=== PATIENT | female | born 1935 | race Caucasian/White ===

== ENCOUNTER → 2020-10-24 10:56 | Outpatient (CLI) | payer MEDICARE, OTHER, SELFPAY ==
[2020-10-24 12:27] LABS: COVID19 -Nasal RAPID Negative (Negative)
== END ==
PROVIDERS: Family Provider Specialist; PCP Specialist; Visit Provider Physician Assistant
DX: Z01.812 Encounter for preprocedural laboratory examination (principal); Z20.822 Contact with and (suspected) exposure to COVID-19
CPT/HCPCS: 87635; C9803

== ENCOUNTER 2020-10-27 10:59 | Day surgery (SDC) | payer MEDICARE, OTHER, SELFPAY ==
[2020-10-27] MEDS: CATARACT EYE COMPOUND (10 DROPS/SYRINGE) 3 DROPS EYE-OP (11:33)
[2020-10-27] MEDS: PROPARACAINE 0.5% OPHTH SOL 2 DROPS EYE-OP (11:33)
[2020-10-27 11:34] VITALS: BP 164/91; PULSE 84; RESP 16; TEMP 36.3; O2SAT 96; BMI 30.9
--- NOTE | 2020-10-27 12:24 | P.OP_ITS ---
Operative Date/Time/Diagnoses Pre-op diagnosis: Nuclear Cataract Left eye Post-op diagnosis: same Procedure & Clinicians Same procedure as scheduled: Yes Surgeon: Remi Roque Anesthesia Type: MAC +/- and Sedation Operative Notes Procedure in detail: Patient brought to the operating suite. Tetracaine drops placed in the left eye. Patient was prepped and draped in sterile manner. Wire lid speculum was placed in the eye. Betadine drops were placed on the eye. This was irrigated. Lidocaine jelly was placed on the eye. A paracentesis port was created with a side-port blade. 0.1 mL 1% preservative free lidocaine was injected into the anterior chamber. The anterior chamber was deepened with viscoelastic. 2.6 mm keratome was used to create a temporal clear corneal incision. Cystotome and Utrata forceps were used to create continuous tear capsulorrhexis. Balanced salt solution was used to hydro dissect the nucleus. The phacoemulsification handpiece was inserted and the nucleus was removed using the stop and chop technique. The irrigation aspiration handpiece was inserted and the remaining cortex was removed. Anterior chamber was deepened with viscoe lastic. An Weiner DIB00 intraocular lens with a power of 23.0 was injected into the capsular bag. Irrigation aspiration handpiece was inserted and the remaining viscoelastic was removed. Incision was hydrated with balanced salt solution and found to be leak free with pressure with Weck-Gisell sponges. 0.1 mL Vigamox injected anterior chamber. 0.3 mL Kenalog 10 mg was injected subconjunctivally. Lid speculum was removed. The patient left the operating room in excellent condition. Complications: none Post-operative Condition: stable Disposition: same day surgery
--- NOTE | 2020-10-27 12:24 | PM.PREOP ---
Pre-operative Note Interval Note History & Physical reviewed/Exam performed by Physician: Yes Changes to H&P: No
[2020-10-27] MEDS: CHONDROIDTIN/SOD HYALURONATE 1.05 ML SYRINGE INTRAOCULA (12:46)
[2020-10-27] MEDS: TRIAMCINOLONE 50 MG/5 ML VIAL INJ (12:46)
[2020-10-27] MEDS: MOXIFLOXACIN INJ 4 MG/0.8 ML VIAL 0.5 MG EYE-OP (12:46)
[2020-10-27] MEDS: PHENYLEPHRINE/LIDOCAINE VIAL (OR) 0.2 ML EYE-OP (12:46)
[2020-10-27] MEDS: TETRACAINE 0.5% OPHTH DROPS 4 ML 2 DROPS EYE-OP (12:47)
[2020-10-27] MEDS: BALANCED SALT IRRIG SOLN NO.2 500 ML, EPINEPHrine 1 MG IRR (12:47)
[2020-10-27] MEDS: LIDOCAINE 2% (GLYDO) 6 ML GEL TOP (12:47)
[2020-10-27 13:10] VITALS: BP 122/75; PULSE 85; RESP 16; TEMP 36.2; O2SAT 92
[2020-10-27 13:19] VITALS: BP 143/80; PULSE 69; RESP 14; TEMP 36.3; O2SAT 98
== END 2020-10-27 13:31 | disposition home or self-care (01) ==
PROVIDERS: Family Provider Specialist; PCP Internal Medicine; Referring Provider Internal Medicine; Visit Provider Ophthalmology
PROC: (CPT 66984; principal; 2020-10-27 12:45)
DX: H25.12 Age-related nuclear cataract, left eye (principal)
CPT/HCPCS: 66984; J0171; J2250; J3301

== ENCOUNTER → 2020-11-07 11:14 | Outpatient (CLI) | payer MEDICARE, OTHER, SELFPAY ==
[2020-11-07 13:38] LABS: COVID19 -Nasal RAPID Negative (Negative)
== END ==
PROVIDERS: Family Provider Specialist; PCP Internal Medicine; Referring Provider Physician Assistant; Visit Provider Physician Assistant
DX: Z01.812 Encounter for preprocedural laboratory examination (principal); Z20.822 Contact with and (suspected) exposure to COVID-19
CPT/HCPCS: 87635; C9803

== ENCOUNTER 2020-11-10 10:48 | Day surgery (SDC) | payer MEDICARE, OTHER, SELFPAY ==
[2020-11-10 11:16] VITALS: BP 120/82; PULSE 80; RESP 16; TEMP 36.2; O2SAT 95; BMI 30.9
[2020-11-10] MEDS: PROPARACAINE 0.5% OPHTH SOL 2 DROPS EYE-OP (11:31)
[2020-11-10] MEDS: CATARACT EYE COMPOUND (10 DROPS/SYRINGE) 3 DROPS EYE-OP (11:32)
--- NOTE | 2020-11-10 12:01 | PM.PREOP ---
Pre-operative Note Interval Note History & Physical reviewed/Exam performed by Physician: Yes Changes to H&P: No
--- NOTE | 2020-11-10 12:01 | PM.OP.1 ---
Operative Date/Time/Diagnoses Pre-op diagnosis: Nuclear cataract right eye Procedure & Clinicians Procedure: Cataract Surgery Same procedure as scheduled: Yes Surgeon: Remi Roque Anesthesia Type: MAC +/- and Sedation Operative Notes Procedure in detail: Patient brought to the operating suite. Tetracaine drops placed in the right eye. Patient was prepped and draped in sterile manner. Wire lid speculum was placed in the eye. Betadine drops were placed on the eye. This was irrigated. Lidocaine jelly was placed on the eye. A paracentesis port was created with a side-port blade. 0.1 mL 1% preservative free lidocaine was injected into the anterior chamber. The anterior chamber was deepened with viscoelastic. 2.6 mm keratome was used to create a temporal clear corneal incision. Cystotome and Utrata forceps were used to create continuous tear capsulorrhexis. Balanced salt solution was used to hydro dissect the nucleus. The phacoemulsification handpiece was inserted and the nucleus was removed using the stop and chop technique. The irrigation aspiration handpiece was inserted and the remaining cortex was removed. Anterior chamber was deepened with viscoelastic. An Weiner DIB00 intraocular lens with a power of 24.0 was injected into the capsular bag. Irrigation aspiration handpiece was inserted and the remaining viscoelastic was removed. Incision was hydrated with balanced salt solution and found to be leak free with pressure with Weck-Gisell sponges. 0.1 mL Vigamox injected anterior chamber. 0.3 mL Kenalog 10 mg was injected subconjunctivally. Lid speculum was removed. The patient left the operating room in excellent condition. Complications: none Post-operative Condition: stable Disposition: same day surgery
[2020-11-10] MEDS: TRIAMCINOLONE 50 MG/5 ML VIAL INJ (12:17)
[2020-11-10] MEDS: PHENYLEPHRINE/LIDOCAINE VIAL (OR) 0.2 ML EYE-OP (12:17)
[2020-11-10] MEDS: MOXIFLOXACIN INJ 4 MG/0.8 ML VIAL 0.5 MG EYE-OP (12:17)
[2020-11-10] MEDS: TETRACAINE 0.5% OPHTH DROPS 4 ML 2 DROPS EYE-OP (12:18)
[2020-11-10] MEDS: BALANCED SALT IRRIG SOLN NO.2 500 ML, EPINEPHrine 1 MG IRR (12:18)
[2020-11-10] MEDS: LIDOCAINE 2% (GLYDO) 6 ML GEL TOP (12:18)
[2020-11-10] MEDS: CHONDROIDTIN/SOD HYALURONATE 1.05 ML SYRINGE INTRAOCULA (12:18)
[2020-11-10 12:33] VITALS: BP 122/82; PULSE 75; RESP 14; TEMP 36.1; O2SAT 94
== END 2020-11-10 12:47 | disposition home or self-care (01) ==
PROVIDERS: Family Provider Specialist; PCP Internal Medicine; Referring Provider Ophthalmology; Visit Provider Ophthalmology
PROC: (CPT 66984; principal; 2020-11-10 12:45)
DX: H25.11 Age-related nuclear cataract, right eye (principal); Z85.3 Personal history of malignant neoplasm of breast
CPT/HCPCS: 66984; J0171; J2250; J3301

== ENCOUNTER 2022-07-01 08:26 | Observation (INO) | payer MEDICARE, OTHER, SELFPAY ==
[2022-06-21 07:21] VITALS: BMI 29.2
[2022-06-30] VITALS (10 sets, daily range): BP systolic 86–176; BP diastolic 53–96; PULSE 51–84; RESP 12–23; TEMP 35.1–36.9; O2SAT 90–100; BMI 28.4
--- NOTE | 2022-06-30 | DI.RAD.S_ITS ---
PROCEDURE: XR PELVIS 1-2V INDICATIONS: intra op TECHNIQUE: Intra-operative view of the pelvis and hip acquired. COMPARISON: None. FINDINGS: Bones: Intraoperative devices prior to placement of arthroplasty prostheses are in expected positions. No fractures or suspicious bony lesions. Soft tissues: Overlying surgical retractors are present, along with other intraoperative changes. IMPRESSION: Operative imaging obtained during total left hip arthroplasty demonstrates no radiographic evidence of complications. Dictated by: Kevyn Florian M.D. on 06/30/2022 at 16:08 Approved by: Kevyn Florian M.D. on 06/30/2022 at 16:09
--- NOTE | 2022-06-30 06:00 | DI.RAD.S_ITS ---
PROCEDURE: XR HIP W PEL IF DONE LT 2V INDICATIONS: RAIMUNDO TECHNIQUE: AP pelvis and lateral view of the left hip acquired. COMPARISON: None. FINDINGS: Bones: Patient is status post left hip arthroplasty, with hardware components in expected positions. The hip joint appears congruent. The visualized bony structures appear intact. Soft tissues: Overlying postoperative changes are noted. No suspicious soft tissue densities. IMPRESSION: Expected appearance of left hip arthroplasty. Dictated by: Rox Graf M.D. on 06/30/2022 at 16:41 Approved by: Rox Graf M.D. on 06/30/2022 at 16:42
[2022-06-30] MEDS: LACTATED RINGERS 1,000 ML 42 ML IV ×2 (12:24→15:52)
[2022-06-30] MEDS: CELECOXIB 200 MG CAPSULE PO (12:25)
[2022-06-30] MEDS: ACETAMINOPHEN 325 MG TABLET 975 MG PO (12:25)
[2022-06-30 12:53] LABS: COVID19 -Nasal RAPID Negative (Negative)
[2022-06-30] MEDS: VANCOMYCIN 1,000 MG/200 ML PIGGYBACK 200 MG IV (13:22)
--- NOTE | 2022-06-30 14:01 | PM.PREOP ---
Pre-operative Note COVID-19 COVID-19 status: Negative Interval Note History & Physical reviewed/Exam performed by Physician: Yes Changes to H&P: No
--- NOTE | 2022-06-30 14:03 | P.OP_ITS ---
Operative Date/Time/Diagnoses Date of procedure: 06/30/22 Time of procedure: 15:10 Pre-op diagnosis: left hip OA Post-op diagnosis: same Procedure & Clinicians Procedure: Left total hip arthroplasty posterior approach Same procedure as scheduled: Yes Indications: The patient has had progressively worsening left hip pain with radiographic jose ramon nges consistent with arthritis. Non-operative management has failed and the patient has requested total hip replacement. The risks, benefits and alternatives to surgery were discussed with the patient prior to proceeding. Risks discussed included, but were not limited to, failure to relieve pain, leg length discrepancy, dislocation, stiffness, infection, nerve damage, deep venous thrombosis, pulmonary embolism, stroke, coma, heart attack, permanent paralysis and , as well as the potential need for eventual revision of the prosthetic. Surgeon: Jami Figueredo Medical Records Technician: Lucho Kimbrough Anesthesia Type: Spinal and Sedation Operative Notes Findings: Severe left hip osteoarthritis, adequate stability Closure Type: primary Specimen(s): none sent Prosthetic devices, grafts, tissues, transplants, or devices: Figueredo and nephew anthology standard offset size 8, 50 mm R3 cup, neutral poly liner, one 6.5 mm screw, 32 x +0 cobalt chrome head Estimated Blood Loss (mL): 250 Blood products transfused: none Procedure in detail: The patient was seen in the pre-operative area, where the patient identified the left hip as the operative site and this was marked with my initials. The patient received pre-operative antibiotics and was taken to the operating room and placed on the operative table in the right lateral decubitus position after satisfactory anesthesia. A registered phlebotomist part time out was performed. The left leg was prepared from the ankle to the iliac crest with ChloroPrep in the usual fashion and draped through sterile drapes. The hip was approached through an approximately 20 cm incision centered over the greater trochanter and curving gently posteriorly as it went proximally. This was carried sharply to the fascia mavis, which was divided and retracted with a self retaining retractor. The trochanteric bursa was excised with care being taken to avoid the sciatic nerve, which was identified and protected throughout the case. The short external rotators were incised and the capsulomuscular flap was raised and tagged for later repair. The hip was dislocated, and a femoral neck osteotomy performed approximately 15 mm above the lesser trochanter. Retractors were placed around the femur. The canal was opened with a box cutting osteotome, followed by a T handled reamer and a lateralizing reamer. The chili pepper broach was then used, followed by sequential broaching until there was good stability of the broach in the femur. Retractors were placed to expose the acetabulum. The labrum and central soft tissues were removed. Reaming was performed initially going up in 2 mm increments, then 1 mm increments until good bite was obtained with an odd sized reamer. The cup 1 mm larger than the last reamer was then inserted using the appropriate anteversion guides. The cup was further stabilized with a single screw. A trial neutral liner was placed. The broach was placed in the canal. A trial head and neck were then placed and the hip relocated and checked for leg length and stability. An intraoperative film confirmed the component position and no evidence of fracture. The patient was stable in the position of sleep, of squatting, and could be put through a range of motion with 45 degrees internal rotation without dislocation. At 90 degrees flexion, internal rotation to 70? was possible before dislocation. This was felt to be satisfactory and the appropriate components were opened, and the trials were removed. The acetabular liner was impacted into position. The final stem was then impacted into the prepared femoral canal. A brief Betadine soak was performed while trialing with head options. The hip was meticulously irrigated with normal saline. Finally the femoral head was impacted onto the stem. The acetabulum was cleared of all material and the hip relocated one final time. The capsulomuscular flap was then repaired to the greater trochanter though an awl hole using the tag sutures. The short external rotators were repaired with a nonabsorbable suture. A deep drain was placed and brought out anteriorly. The fascia mavis was closed with Vicryl. The subcutaneous layer was closed with barbed sutures and SteriStrips. An Aquacel Ag dressing was applied and the patient was taken to recovery having tolerated the procedure well. Complications: none Post-operative Condition: stable Disposition: Acute Care Plan for aftercare: Patient will be admitted as an inpatient. I anticipate she will need 2 overnight stays. She is 87 and has multiple orthopedic problems and poor mobility. She needs inpatient rehab and physical therapy in order to mobilize. She can be weight-bearing as tolerated with routine posterior hip precautions. She may require short-term stay in rehab.
[2022-06-30] MEDS: CEFAZOLIN 2 GM/100 ML PREMIX 100 ML IV ×2 (14:25→23:42)
[2022-06-30] MEDS: TRANEXAMIC ACID 1,000 MG VIAL 2000 MG INJ ×2 (14:50→16:04)
[2022-06-30] MEDS: BUPIVACAINE LIPOSOME 266 MG/20 ML VIAL INJ (15:02)
[2022-06-30] MEDS: BUPIVACAINE 0.25% (PF) 60 ML, EPINEPHrine 0.3 MG INJ (15:03)
[2022-06-30] MEDS: BUPIVACAINE 0.5% W/ EPI (PF) 30 ML VIAL INJ (15:05)
--- NOTE | 2022-06-30 15:15 | SUR.OPER ---
Lateral on padded OR bed. Gel axillary roll. Arms secured on padded armboard with pillow supporting top arm. Padded hip positioner braces x4 - anterior and posterior chest and pelvis. Additional gel pad used anterior pelvis. Gel pad under bottom leg from knee to foot and secured with tape over sheet.
[2022-06-30] MEDS: LACTATED RINGERS 1,000 ML 125 ML IV (17:39)
[2022-06-30] MEDS: ACETAMINOPHEN 325 MG TABLET 650 MG PO ×2 (17:40→23:42)
[2022-06-30] MEDS: IBUPROFEN 400 MG TABLET PO ×2 (17:40→23:42)
--- NOTE | 2022-06-30 17:45 | PC.NURSE ---
Pt arrived from PACU at 1700, A&Ox4, no c/o pain, SOB or nausea. VSS, dressing to L hip c/d/i, ice in place. Unable to move bilat LE, but feels tingling when touched. IV fluids started per JUL, pt oriented to room and call light. SCDs to bilat LE, bed alarm on, call light within reach.
[2022-06-30] MEDS: ASPIRIN EC 81 MG TABLET PO (21:00)
[2022-06-30] MEDS: DOCUSATE 100 MG CAPSULE PO (21:00)
[2022-07-01] MEDS: OXYCODONE IR 10 MG TABLET PO ×2 (00:18→20:11)
[2022-07-01 05:15] VITALS: BP 156/71; PULSE 81; RESP 18; TEMP 36.6; O2SAT 96
[2022-07-01] MEDS: ACETAMINOPHEN 325 MG TABLET 650 MG PO ×3 (05:36→17:31)
[2022-07-01] MEDS: IBUPROFEN 400 MG TABLET PO ×3 (05:36→17:30)
[2022-07-01] MEDS: CEFAZOLIN 2 GM/100 ML PREMIX 100 ML IV (05:36)
[2022-07-01] MEDS: LEVOTHYROXINE 25 MCG TABLET PO (05:39)
[2022-07-01 05:51] LABS: Hematocrit 39.5 % (36-46); Hemoglobin 13.2 g/dL (12.0-16.0)
[2022-07-01 08:00] VITALS: BP 131/78; PULSE 74; RESP 16; TEMP 36.4; O2SAT 98
--- NOTE | 2022-07-01 08:14 | PM.PNPO.1 ---
Subjective Subjective Date Patient Seen: 07/01/22 Time Patient Seen: 08:14 Interval history: Sitting up in bed, has not been OOB yet. Good pain control w/ oral meds, no N/V. Has no help at home, will likely require HH or SNF. Exam Vital Signs (past 8 hours): - 07/01/22 05:15 07/01/22 05:15 Temperature 97.8 F Pulse Rate 81 Respiratory Rate 18 Blood Pressure 156/71 H Pulse Oximetry 96 Oxygen Delivery Method Nasal Cannula Oxygen Flow Rate 2 2 Fraction of Inspired Oxygen 28 Fraction of Inspired Oxygen 28 Oxygen Delivery Method Nasal Cannula Oxygen Flow Rate 2 Narrative Exam Narrative: 4/5 hip flexors, quadriceps, hamstrings; 5/5 DF, PF, EHL on left. Sensation to light touch intact throughout LLE. Calves soft, compressible, nontender and without palpable cords or masses. Aquacel dressing CDI. Objective Labs 07/01/22 05:05 Labs: Laboratory Results - last 24 hr 06/30/22 07/01/22 12:00 05:05 Hgb 13.2 Hct 39.5 SARS-CoV-2 (PCR) Negative PFSH Medical History (Updated 06/21/22 @ 08:21 by Kaitlyn Land RN) Breast cancer, right (1990) Easy bruisability Hypothyroidism Surgical History (Updated 07/01/22 @ 08:16 by Kinjal Fenton PA-C) History of hysterectomy History of lumpectomy of right breast (1990) History of total replacement of left shoulder joint History of total replacement of right hip Hx of appendectomy Hx of bilateral cataract extraction (2020) Hx of dilation and curettage Hx of foot surgery Hx of tonsillectomy Social History household members: none Smoking Status: Former smoker alcohol intake: never Assessment & Plan Post-op Assessment and plan (1) S/P total hip arthroplasty: Assessment and Plan narrative: Continue multimodal pain control. Disposition per PT recommendations. Likely discharge in 1-2 days. Postoperative Procedures: Procedures Operation Date: 06/30/22 14:15 Actual Procedure Side Surgeon p Total Hip Arthroplasty Left Jami Figueredo MD Postoperative day: 1
--- NOTE | 2022-07-01 08:40 | CM.DANOTE ---
Addendum entered by Cindy Ann R.N. 07/01/22 12:29: Lita at [facility] called back and confirmed peanut picker time tomorrow at noon. Updated patient, she is aware. Addendum entered by Cindy Ann R.N. 07/01/22 11:20: Patient looked over the list, and chose a facility. Lita at [facility] had called prior, and indicated that they can accept patient tomorrow as well. Met with patient and she chose [facility]. Updated Lita, and she confirmed that they can peanut picker at 11:00, will need COVID waiver signed, and indication in DC Summary that beds need to be freed up for possible COVID patients. Called Darline from [facility] and updated her that patient wishes to go to other facility. Will see if patient will need updated COVID swab. Addendum entered by Cindy Ann R.N. 07/01/22 10:28: Went over Medicare.gov list, patient has no preferences. Spoke to Lita at [facility], not sure if she can accept with COVID waiver, has to review with their UR nurse. Spoke to Lorenza at [facility], they have no admission nurse this weekend, most likely not until Monday. Spoke to Darline at [facility], they have beds, should be able to accept tomorrow on COVID waiver. She just has to review P.T. notes. Will call her, or fax her once they are in, so she can set up transport time for tomorrow. Completed COVID waive, just need to have ortho sign, and will complete PASSR. Original Note: DCP: Case received, EMR reviewed and met with patient. Introduced self and role. Was able to obtain information regarding patient's baseline activity status prior to surgery, as well as her current living situation. DCP assessment completed with information currently available. Patient is an 87 year old female who admitted yesterday morning to the care of the orthopedic team. PCP: Dr. Jennings. Payer: confirmed: Medicare/ [employer] Patient came to the hospital for a surgical procedure. She had left total hip arthroplasty posterior approach. Patient has history of left hip osteoarthritis. Notes on history and physical indicate that patient resides alone, and is wanting shelter. Met with patient in her room. She was laying in bed, alert and oriented. Confirmed that she resides alone in Monday. At her baseline, she is active, she does water exercises, drives, she does use a FWW outside. Also confirmed with patient that she wanted to go to a shelter facility since she has no one to care for her post surgery. Let her know that this procedure is no longer considered inpatient, is outpatient/OBS, and not covered by her Medicare, she was not aware of this. Did let her know that there are facilities in [facility] that do take COVID waivers. She is open to any of the facilities. Will still go over facilities with patient on ipad, and will have Arleen send referrals. P: DCP to continue to follow, P.T. will be working with patient, and will attempt to secure a facility in [facility] for patient, does not need a 3 day stay, since she is not inpatient. Cindy Ann RN/Cement Storage Worker Discharge Planning/Care Management CM Discharge Assessment Start: 07/01/22 08:37 Freq: Status: Active Protocol: Document 07/01/22 08:37 (Rec: 07/01/22 08:40 [id number]) Discharge Planning Assessment Assigned Casing Splitter Cindy Ann RN/Cement Storage Worker Advance Directives? No History Provided By Patient,Medical Record Prior Living Arrangements Apartment/Condo Household Members none Type of transporation used prior to Drives own vehicle admit Independent with ADL's Yes Is patient alert and oriented? Yes Comment Patient goes to the pool for exercising DME Already Rented / Owned FWW / Walker Barriers to Discharge Yes Comment Lives alone, patient wanted to go to skilled after surgery, but she is SDC/OBS, does not cover, will need to locate a facility that accepts COVID waiver. Discharge Plan Detention Facility Transportation Arrangement Facility, if one can be securred Referrals Initiated Detention Additional Comment Will go over reviewed facilities, most likely will be a facility in [facility], for [facility] does not accept COVID waivers. Whiteboard Updated in Patient Room with Yes name and ext. # of Casing Splitter Review Status In Process Next Review Type Continued Stay Review Pre-Anesthesia Assessment Start: 06/21/22 07:21 Freq: Status: Active Protocol: Document 06/21/22 07:21 [facility] (Rec: 06/21/22 08:42 [facility] [id number]) Pre-Anesthesia Assessment Preferred Name Sarah Patient Information Reviewed Via Phone Assessment Assessment Completed With Patient Diagnostic Results BMP/CMP,CBC,EKG,Urinalysis Comment Outside labs/EKG scanned Primary Care Provider Matt Jennings Seen Specialist in Last 12 Months Yes Specialist Seen Orthopedist Primary Language French Manager Of Pharmacy Required No Height 5 ft 3 in Weight 165 lb Body Mass Index (BMI) 29.2 Hearing Ability Normal Visual Assist Magnifying Glass Dentition Type Teeth, Natural Present Barriers to Learning Age related,Memory Hx Anesthesia Reactions No Hx Family Anesthesia Reaction No Hx Malignant Hyperthermia No Hx Blood Transfusions No Hx Blood Transfusion Reaction No Anesthesia Review Requested No 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 alcohol intake never Smoking Status Former smoker how long ago did patient quit smoking Quit in her 20's Substance Use Type does not use Pain Present Pain Reported Musculoskeletal Symptoms Abnormal Gait,Difficulty Walking,Joint Pain History of Falling (Recent or History of No ) Patient is completely paralyzed or No completely immobile Prosthesis or Orthotic Device Front Wheel Walker Mental Status Oriented to own ability Is patient on oxygen? No Does patient have RIZO/SOB No Hx Sleep Apnea No CPAP/BIPAP use not prescribed Currently Taking a Beta Kirill No Can You Climb a Flight of Stairs Without Yes SOB Hx Chest Pain No Hx SOB No Hx Syncope or Dizziness No Anti-Coagulant Therapy No Has a Pharmacy Technician Infusion No Cardiac Testing No Hx Pacemaker/ICD No Pacemaker Rep Required? No Cardiac Clearance Received Not Applicable Comment Goes to the pool 3x week for exercise Diet Type At Home Regular Dysphagia No Gastrointestinal Symptoms None Chronic UTI No Bladder Pattern Incontinent, Stress Urinary Catheter Present No Hx Urinary Self Catheterization No Diabetes No HgbA1C 5.8 Date 05/18/22 Patient No Lactating No Presence of External or Internal Medical Yes: Bilat eye IOLs, left Devices shoulder, right hip Have you had any close contact with No someone diagnosed with COVID-19? Received a COVID vaccine? Yes Received all doses? Yes Marital Status / Lives With none Current Living Arrangements Apartment/Condo Number of Floors (Floors) One Floor Support System None Does the Patient Have Assistance After No Surgery Patient Discharge Plan Description Detention Facility/Rehab Comment Pt would like to go to a SNF @ [place] Feels Safe in Current Environment Yes Been Physically Hurt or Threatened By a No Person in Current Environment Do you have thoughts of harming yourself None or others? Are you currently considering suicide? No Do you have a plan to hurt yourself or No Plan others? Do You Have Any Spiritual Beliefs That No May Affect Your HC Choices? Do You Have Any Cultural Practices That No May Affect Your HC Choices? Comment [facility] Who Can We Speak to About Patient's Care Family, friends Identifying Code for Release of Patient Declines to issue Information Health Care Proxy/Next of Kin Sherita Annabelle (Kim) Health Care Proxy Emergency Contact Name Sherita Meyerslouisa (Kim) Emergency Contact Advance Directives? No Power of Grinder Set Up Operator External No PAC Instructions Do not shave/clip surgical site,Durable medical equipment ,Medications to take/avoid, Nasal antibiotic,No ETOH/ petroleum product on skin DOS, NPO,Pre-surgical wash,Sensory aids,Sturdy shoes/comfortable clothes,Do not bring valuables and remove jewelry
[2022-07-01] MEDS: polyethylene glycoL 3350 17 GM POWD.PACK PO (08:50)
[2022-07-01] MEDS: ASPIRIN EC 81 MG TABLET PO ×2 (08:50→20:11)
[2022-07-01] MEDS: DOCUSATE 100 MG CAPSULE PO ×2 (08:50→20:11)
[2022-07-01] MEDS: OXYCODONE IR 5 MG TABLET PO (09:45)
--- NOTE | 2022-07-01 10:30 | PT.IIE ---
Current Diagnoses Unilateral primary osteoarthritis, left hip (07/01/22) Pain in left hip (07/01/22) Presence of unspecified artificial hip joint (07/01/22) Surgery Performed Operation Date: 06/30/22 14:15 Actual Procedures p Total Hip Arthroplasty(Left) - Jami Figueredo MD Surgical History (Last Updated 06/21/22 @ 08:21 by Kaitlyn Land, RN) History of hysterectomy History of lumpectomy of right breast (1990) History of total replacement of left shoulder joint History of total replacement of right hip Hx of appendectomy Hx of bilateral cataract extraction (2020) Hx of dilation and curettage Hx of foot surgery Hx of tonsillectomy Medical History (Last Updated 06/21/22 @ 08:21 by Kaitlyn Land RN) Breast cancer, right (1990) Easy bruisability Hypothyroidism Physical Therapy Inpatient Evaluation/Re-Eval M1 PT/OT-IP Prior Functional Status Start: 07/01/22 12:31 Freq: NEEDED Status: Active Protocol: Document 07/01/22 10:30 AB (Rec: 07/01/22 12:48 AB [email or web address]) Medical Review Prior Functional Status Medical History Reviewed Yes Communication able to make needs known Mobility and Gait pt stated that she is modified independent with all mobilities and ambulation without AD indoors but has been using a 4WW for the last 2 weeks due to hip pain; stated that she goes to pool therapy 3x/week and uses her 4WW when she goes there. Social History Household Members none Living Arrangements Apartment/Condo Number of Floors (Floors) One Floor Number of Stairs To Enter/Railing? 1 step to enter Home Environment Standard Height Toilet,Tub/ Shower Home Equipment Bedside Commode,Grab Bars In Shower Additional Social History Comment stated that she has a transfer pole on L side of the bed to assist her with bed mobility M2 PT-IP Current Condition Start: 07/01/22 12:31 Freq: NEEDED Status: Active Protocol: Document 07/01/22 10:30 AB (Rec: 07/01/22 12:48 AB [email or web address]) Physical Therapy Current Condition Current Condition Evaluation Date 07/01/22 Treatment Diagnosis s/p L RAIMUNDO posterior approach; difficulty in walking Onset Date 06/30/22 M3 PT-IP Subjective Start: 07/01/22 12:31 Freq: NEEDED Status: Active Protocol: Document 07/01/22 10:30 AB (Rec: 07/01/22 12:48 AB [email or web address]) Subjective Physical Therapy Visit Type Type Initial Evaluation Visit Start Time 10:30 Visit Stop Time 11:16 Total Visit Minutes 46 Number of COBOL PROGRAMMER Visits 0 Physical Therapy Visit Comments Patient Comments agreeable to do PT Therapy Pain Assessment Pain When Pain Assessed At Rest Pain Present Pain Present Pain Reported Location left hip Intensity 8 Scale Used Numeric (0 - 10) Pain Management Techniques Distraction,Modification of Treatment,Re-positioning, Timing of Activity with Medications M4 PT-IP Mobility and Gait Start: 07/01/22 12:31 Freq: NEEDED Status: Active Protocol: Document 07/01/22 10:30 AB (Rec: 07/01/22 12:48 AB [email or web address]) PT-Bed Mobility Assessment Supine to Sit Supine to Sit Maximum Assistance Sit to Supine Sit to Supine Minimal Assistance,1 Person Assistance PT-Transfer Assessment Sit to and From Stand Sit to and from Stand Maximum Assistance,1 Person Assistance,Use of Upper Extremities Equipment Transfer Assistive Device Gait Belt,Front Wheeled Walker Orthotic/Prosthetic Devices or Brace: No Transfers Transfer Destination Bed,Chair Transfer Technique ambulated Transfer Ability Level of Assist Moderate Assistance,Maximum Assistance,1 Person Assistance ,Use of Upper Extremities Comments Mobility Comments pt sitting on the chair and agreed to do PT. educated pt on posterior hip precautions. completed sit to stand max A and max cues and ambulated in room ~ 25 ft using FWW mod A and max cues. pt sat on EOB. sit to supine mod A and max cues for hip precautions and max A for supine to sit. sit to stand from EOB max A and mod to max A for step transfer to chair using FWW. positioned pt on the chair. call light and table placed within reach. Gait Assessment Gait Gait Assistance Required: Moderate Assistance Distance (Feet) 25 Able to Maintain Weight Bearing Status Yes During Gait Assistive Devices Assistive Device Gait Belt,Front Wheeled Walker Orthotic/Prosthetic Devices or Brace: No Gait Deviations General Gait Pattern Ataxic,Decreased Stride Length ,Decreased Feet Clearance,Step -to Gait Factors Limiting Gait Function Factors Limiting Gait Function Decreased Activity Tolerance, Decreased Strength,Limited Range of Motion,Pain,Poor Balance,Poor Safety Awareness PT-Balance Assessment Sitting Balance and Reactions Static Sitting Balance Ability Good Dynamic Sitting Balance Ability Fair Standing Balance and Reactions Static Standing Balance Ability Poor Dynamic Standing Balance Ability Poor Device Used FWW M5 PT-IP Objective Assessments Start: 07/01/22 12:31 Freq: NEEDED Status: Active Protocol: Document 07/01/22 10:30 AB (Rec: 07/01/22 12:48 AB [email or web address]) Orientation Orientation/Cognition Level of Alertness Alert Orientation Name,Place,Situation Language Function Ability No Deficits Noted Safety Awareness Decreased Safety Awareness Memory Description No Deficits Noted Gross Range of Motion Lower Extremity ROM Assessment Within Functional Limits Strength Lower Extremity Strength Assessment Left Impaired Hip 3+/5 Knee 3+/5 Sensation Assessment Sensation Gross Sensation WNL Muscle Tone Muscle Tone WNL Yes M6 PT-IP Treatment Start: 07/01/22 12:31 Freq: NEEDED Status: Active Protocol: Document 07/01/22 10:30 AB (Rec: 07/01/22 12:48 AB [email or web address]) Physical Therapy Treatment Education Education Provided Precautions,Weight Bearing Status,Post-Op Packet,Safety M7 PT-IP Assessment and Plan Start: 07/01/22 12:31 Freq: NEEDED Status: Active Protocol: Document 07/01/22 10:30 AB (Rec: 07/01/22 12:48 AB [email or web address]) PT Summary Assessment and Plan Potential Rehabilitation Potential Fair Status of Condition at Evaluation Evolving Summary Impairments Pain,ROM,Strength,Balance, Coordination,Sensation,Tone, Cognition,Bed Mobility, Transfers,Gait,Activity Tolerance Assessment Summary pt requiring mod to max A with mobility using FWW. pt will require SNF rehab to improve overall strength and function. Goals Bed Mobility Goal Contact Guard Assistance Transfer Goal Contact Guard Assistance,Front Wheeled Walker Gait Goal Contact Guard Assistance,Front Wheel Walker Gait Distance 100 Other Goals up/down 1 step CGA Days to Meet Goals 10 Frequency of Treatment Frequency Of Treatment Twice a Day Treatment Plan Physical Therapy Treatment Plan Bed Mobility Training,Transfer Training,Gait Training, Therapeutic Exercise,Balance Retraining,Post Op Education, Discharge Planning,Hot or Cold Pack,Neuromuscular Re-ed, Coordination Retraining,Manual Therapy Precautions Posterior Hip Precautions No Hip Flexion > 90 degrees,No Hip Internal Rotation,No Hip Adduction Weight Bearing Status Weight Bearing Status Weight Bear as Tolerated Allowed Weight Bearing Amount (enter % LLE WBAT or #) (%) Recommendations To Nursing Amount of Assist Needed 1 Person Assist Discharge Recommendations PT Discharge Recommendations SNF Rehab Transportation Needs at Discharge Wheelchair/Cabulance
--- NOTE | 2022-07-01 13:50 | PT.IPTN ---
Current Diagnoses Unilateral primary osteoarthritis, left hip (07/01/22) Pain in left hip (07/01/22) Presence of unspecified artificial hip joint (07/01/22) Surgery Performed Operation Date: 06/30/22 14:15 Actual Procedures p Total Hip Arthroplasty(Left) - Jami Figueredo MD Physical Therapy Treatment Note M2 PT-IP Current Condition Start: 07/01/22 12:31 Freq: NEEDED Status: Active Protocol: Document 07/01/22 10:30 AB (Rec: 07/01/22 12:48 AB [email or web address]) Physical Therapy Current Condition Current Condition Evaluation Date 07/01/22 Treatment Diagnosis s/p L RAIMUNDO posterior approach; difficulty in walking Onset Date 06/30/22 M3 PT-IP Subjective Start: 07/01/22 12:31 Freq: NEEDED Status: Active Protocol: Document 07/01/22 13:50 AB (Rec: 07/01/22 15:23 AB [email or web address]) Subjective Physical Therapy Visit Type Type Treatment Note Visit Start Time 13:50 Visit Stop Time 14:10 Total Visit Minutes 20 Number of MECHANICAL SHOVEL OPERATOR Visits 0 Physical Therapy Visit Comments Patient Comments agreed to do PT M4 PT-IP Mobility and Gait Start: 07/01/22 12:31 Freq: NEEDED Status: Active Protocol: Document 07/01/22 13:50 AB (Rec: 07/01/22 15:23 AB [email or web address]) PT-Bed Mobility Assessment Supine to Sit Supine to Sit Maximum Assistance Sit to Supine Sit to Supine Maximum Assistance PT-Transfer Assessment Sit to and From Stand Sit to and from Stand Moderate Assistance,1 Person Assistance,Use of Upper Extremities Equipment Transfer Assistive Device Gait Belt,Front Wheeled Walker Orthotic/Prosthetic Devices or Brace: No Comments Mobility Comments completed supine to sit max A and max cues. sit to stand mod A and ambulated in room using FWW ~ 35 ft min A. pt requested to go back to bed. sat on EOB and completed sit to supine max A and max cues. positioned pt in bed. call light and table placed within reach. Gait Assessment Gait Gait Assistance Required: Minimum Assistance Distance (Feet) 35 Able to Maintain Weight Bearing Status Yes During Gait Assistive Devices Assistive Device Gait Belt,Front Wheeled Walker Orthotic/Prosthetic Devices or Brace: No Gait Deviations General Gait Pattern Decreased Stride Length, Decreased Feet Clearance,Step- to Gait Factors Limiting Gait Function Factors Limiting Gait Function Decreased Activity Tolerance, Decreased Strength,Limited Range of Motion,Pain,Poor Balance,Poor Safety Awareness M5 PT-IP Objective Assessments Start: 07/01/22 12:31 Freq: NEEDED Status: Active Protocol: Document 07/01/22 10:30 AB (Rec: 07/01/22 12:48 AB [email or web address]) Orientation Orientation/Cognition Level of Alertness Alert Orientation Name,Place,Situation Language Function Ability No Deficits Noted Safety Awareness Decreased Safety Awareness Memory Description No Deficits Noted Gross Range of Motion Lower Extremity ROM Assessment Within Functional Limits Strength Lower Extremity Strength Assessment Left Impaired Hip 3+/5 Knee 3+/5 Sensation Assessment Sensation Gross Sensation WNL Muscle Tone Muscle Tone WNL Yes M6 PT-IP Treatment Start: 07/01/22 12:31 Freq: NEEDED Status: Active Protocol: Document 07/01/22 13:50 AB (Rec: 07/01/22 15:23 AB [email or web address]) Physical Therapy Treatment Education Education Provided Precautions,Safety M7 PT-IP Assessment and Plan Start: 07/01/22 12:31 Freq: NEEDED Status: Active Protocol: Document 07/01/22 13:50 AB (Rec: 07/01/22 15:23 AB [email or web address]) PT Summary Assessment and Plan Potential Rehabilitation Potential Fair Summary Impairments Pain,ROM,Strength,Balance, Coordination,Sensation,Tone, Cognition,Bed Mobility, Transfers,Gait,Activity Tolerance Progress Towards Goals Slow Progress due to Pain,Slow Progress due to Medical Issues,Slow Progress due to Activity Tolerance Assessment Summary pt progressing slowly but continues to require max A for bed mobility, mod A for sit to stand and min for ambulation using FWW. pt lives alone and will need SNF rehab at this time due to assitance needing and needs to be more independent before pt can safely return home. will continue to assess progress. Goals Bed Mobility Goal Contact Guard Assistance Transfer Goal Contact Guard Assistance,Front Wheeled Walker Gait Goal Contact Guard Assistance,Front Wheel Walker Gait Distance 100 Other Goals up/down 1 step CGA Days to Meet Goals 10 Frequency of Treatment Frequency Of Treatment Twice a Day Treatment Plan Physical Therapy Treatment Plan Bed Mobility Training,Transfer Training,Gait Training, Therapeutic Exercise,Balance Retraining,Post Op Education, Discharge Planning,Hot or Cold Pack,Neuromuscular Re-ed, Coordination Retraining,Manual Therapy Precautions Posterior Hip Precautions No Hip Flexion > 90 degrees,No Hip Internal Rotation,No Hip Adduction Weight Bearing Status Weight Bearing Status Weight Bear as Tolerated Allowed Weight Bearing Amount (enter % LLE WBAT or #) (%) Recommendations To Nursing Amount of Assist Needed 1 Person Assist Discharge Recommendations PT Discharge Recommendations SNF Rehab Transportation Needs at Discharge Wheelchair/Cabulance
[2022-07-01] MEDS: SODIUM CHLORIDE 0.9% FLUSH 10 ML IV (20:11)
[2022-07-01 21:07] VITALS: BP 137/75; PULSE 84; RESP 18; TEMP 36.7; O2SAT 94
[2022-07-02] MEDS: IBUPROFEN 400 MG TABLET PO ×3 (01:25→11:44)
[2022-07-02] MEDS: ACETAMINOPHEN 325 MG TABLET 650 MG PO ×3 (01:25→11:45)
[2022-07-02] MEDS: OXYCODONE IR 10 MG TABLET PO (01:26)
[2022-07-02] MEDS: ONDANSETRON 4 MG/2 ML INJ IV (01:30)
[2022-07-02] MEDS: LEVOTHYROXINE 25 MCG TABLET PO (05:52)
[2022-07-02 07:00] VITALS: BP 121/85; PULSE 77; RESP 18; TEMP 36.2; O2SAT 95
--- NOTE | 2022-07-02 08:45 | PT.IPTN ---
Current Diagnoses Unilateral primary osteoarthritis, left hip (07/01/22) Pain in left hip (07/01/22) Presence of unspecified artificial hip joint (07/01/22) Surgery Performed Operation Date: 06/30/22 14:15 Actual Procedures p Total Hip Arthroplasty(Left) - Jami Figueredo MD Physical Therapy Treatment Note M2 PT-IP Current Condition Start: 07/01/22 12:31 Freq: NEEDED Status: Active Protocol: Document 07/01/22 10:30 AB (Rec: 07/01/22 12:48 AB [email or web address]) Physical Therapy Current Condition Current Condition Evaluation Date 07/01/22 Treatment Diagnosis s/p L RAIMUNDO posterior approach; difficulty in walking Onset Date 06/30/22 M3 PT-IP Subjective Start: 07/01/22 12:31 Freq: NEEDED Status: Active Protocol: Document 07/02/22 08:45 AB (Rec: 07/02/22 10:59 AB [email or web address]) Subjective Physical Therapy Visit Type Type Treatment Note Visit Start Time 08:45 Visit Stop Time 09:06 Total Visit Minutes 21 Number of CASH REGISTER OPERATOR Visits 0 Physical Therapy Visit Comments Patient Comments agreeable to do PT Therapy Pain Assessment Pain When Pain Assessed At Rest Pain Present Pain Present Pain Reported Location left hip Intensity 3 Scale Used Numeric (0 - 10) Pain Management Techniques Modification of Treatment,Re- positioning M4 PT-IP Mobility and Gait Start: 07/01/22 12:31 Freq: NEEDED Status: Active Protocol: Document 07/02/22 08:45 AB (Rec: 07/02/22 10:59 AB [email or web address]) PT-Transfer Assessment Sit to and From Stand Sit to and from Stand Maximum Assistance,1 Person Assistance,Use of Upper Extremities Equipment Transfer Assistive Device Gait Belt,Front Wheeled Walker Orthotic/Prosthetic Devices or Brace: No Comments Mobility Comments pt sitting on chair and agreeable to do PT. reviewed hip precautions and pt requires cues to recall. completed sit to stand from chair max A x 1 and max cues. ambulated in room using FWW min A ~ 50 ft and cues. presents with antalgic gait with decrease step elevation/ length. pt sat back on chair. positioned on the chair. call light and table placed within reach. Gait Assessment Gait Gait Assistance Required: Minimum Assistance,1 Person Assist Distance (Feet) 50 Able to Maintain Weight Bearing Status Yes During Gait Assistive Devices Assistive Device Gait Belt,Front Wheeled Walker Orthotic/Prosthetic Devices or Brace: No Gait Deviations General Gait Pattern Decreased Stride Length, Decreased Feet Clearance Factors Limiting Gait Function Factors Limiting Gait Function Decreased Activity Tolerance, Decreased Strength,Limited Range of Motion,Pain,Poor Balance,Poor Safety Awareness M5 PT-IP Objective Assessments Start: 07/01/22 12:31 Freq: NEEDED Status: Active Protocol: Document 07/01/22 10:30 AB (Rec: 07/01/22 12:48 AB [email or web address]) Orientation Orientation/Cognition Level of Alertness Alert Orientation Name,Place,Situation Language Function Ability No Deficits Noted Safety Awareness Decreased Safety Awareness Memory Description No Deficits Noted Gross Range of Motion Lower Extremity ROM Assessment Within Functional Limits Strength Lower Extremity Strength Assessment Left Impaired Hip 3+/5 Knee 3+/5 Sensation Assessment Sensation Gross Sensation WNL Muscle Tone Muscle Tone WNL Yes M6 PT-IP Treatment Start: 07/01/22 12:31 Freq: NEEDED Status: Active Protocol: Document 07/02/22 08:45 AB (Rec: 07/02/22 10:59 AB [email or web address]) Physical Therapy Treatment Education Education Provided Precautions,Safety M7 PT-IP Assessment and Plan Start: 07/01/22 12:31 Freq: NEEDED Status: Active Protocol: Document 07/02/22 08:45 AB (Rec: 07/02/22 10:59 AB [email or web address]) PT Summary Assessment and Plan Potential Rehabilitation Potential Good Summary Impairments Pain,ROM,Strength,Balance, Coordination,Sensation,Tone, Cognition,Bed Mobility, Transfers,Gait,Activity Tolerance Progress Towards Goals Slow Progress due to Activity Tolerance Assessment Summary pt improving with mobility requiring max A for sit to stand and min A for ambulation . pt will require SNF rehab to improve strength and function. Goals Bed Mobility Goal Contact Guard Assistance Transfer Goal Contact Guard Assistance,Front Wheeled Walker Gait Goal Contact Guard Assistance,Front Wheel Walker Gait Distance 100 Other Goals up/down 1 step CGA Days to Meet Goals 10 Frequency of Treatment Frequency Of Treatment Twice a Day Treatment Plan Physical Therapy Treatment Plan Bed Mobility Training,Transfer Training,Gait Training, Therapeutic Exercise,Balance Retraining,Post Op Education, Discharge Planning,Hot or Cold Pack,Neuromuscular Re-ed, Coordination Retraining,Manual Therapy Precautions Posterior Hip Precautions No Hip Flexion > 90 degrees,No Hip Internal Rotation,No Hip Adduction Weight Bearing Status Weight Bearing Status Weight Bear as Tolerated Allowed Weight Bearing Amount (enter % LLE WBAT or #) (%) Recommendations To Nursing Amount of Assist Needed 1 Person Assist Discharge Recommendations PT Discharge Recommendations SNF Rehab Transportation Needs at Discharge Wheelchair/Cabulance
[2022-07-02] MEDS: DOCUSATE 100 MG CAPSULE PO (08:58)
[2022-07-02] MEDS: polyethylene glycoL 3350 17 GM POWD.PACK PO (08:58)
[2022-07-02] MEDS: ASPIRIN EC 81 MG TABLET PO (08:58)
[2022-07-02] MEDS: SODIUM CHLORIDE 0.9% FLUSH 10 ML IV (08:58)
--- NOTE | 2022-07-02 09:20 | P.DS_ITS ---
History of Present Illness History of Present Illness Date Patient Seen: 07/02/22 Time Patient Seen: 09:20 Chief complaint: OPB Narrative: Operative Date/Time/Diagnoses Date of procedure: 06/30/22 Time of procedure: 15:10 Pre-op diagnosis: left hip OA Post-op diagnosis: same Procedure & Clinicians Procedure: Left total hip arthroplasty posterior approach Same procedure as scheduled: Yes Indications: The patient has had progressively worsening left hip pain with radiographic changes consistent with arthritis. Non-operative management has failed and the patient has requested total hip replacement. The risks, benefits and alternatives to surgery were discussed with the patient prior to proceeding. Risks discussed included, but were not limited to, failure to relieve pain, leg length discrepancy, dislocation, stiffness, infection, nerve damage, deep venous thrombosis, pulmonary embolism, stroke, coma, heart attack, permanent paralysis and , as well as the potential need for eventual revision of the prosthetic. Surgeon: Jami Figueredo Drill Rig Operator: Lucho Kimbrough Anesthesia Type: Spinal and Sedation Operative Notes Findings: Severe left hip osteoarthritis, adequate stability Closure Type: primary Specimen(s): none sent Prosthetic devices, grafts, tissues, transplants, or devices: Figueredo and nephew anthology standard offset size 8, 50 mm R3 cup, neutral poly liner, one 6.5 mm screw, 32 x +0 cobalt chrome head Estimated Blood Loss (mL): 250 Blood products transfused: none Discharge Providers Provider Date of admission: 07/01/22 08:26 Discharge Date: 07/02/22 Primary care physician: Jorge Jennings MD Consults: 06/21/22 08:42 Consult to Cottage Cheese Maker Routine Comment: Lives alone on [address], wants to DC to SNF 06/30/22 06:00 Consult to Anesthesiology Routine Comment: Consulting Provider: Anesthesiologist Reason for consultation: Regional block for post operative pain control 06/30/22 17:22 Consult to Discharge Planning Routine Comment: Consult to Physical Therapy Evaluate & Treat Comment: Physician Instructions: post op RAIMUNDO protocol Discharge provider: Kinjal Fenton PA-C Summary Hospital Course Discharge Diagnosis: Left hip osteoarthritis, s/p left total hip arthroplasty Hospital Course: Ms Tapia's hospital course was unremarkable. She was evaluated by PT throughout her stay and felt to be most appropriate for discharge to SNF prior to homegoing. On the morning of POD# 2 she was feeling well and was ready for discharge. She was voiding without difficulty and c/o some nausea overnight that was controlled w/ ondansetron. Her pain was well-controlled with oral medication. Exam Vital Signs (past 8 hours): - 07/02/22 07:00 Temperature 97.1 F L Pulse Rate 77 Respiratory Rate 18 Blood Pressure 121/85 Pulse Oximetry 95 Oxygen Flow Rate 0 Fraction of Inspired Oxygen 28 Oxygen Delivery Method Nasal Cannula Oxygen Flow Rate 0 Narrative Exam Narrative: 5/5 strength in hip flexors quadriceps, hamstrings, DF, PF, EHL on left. Sensation to light touch intact throughout LLE. Calves soft, compressible, nontender and without palpable cords or masses. Aquacel dressing CDI. Objective Labs 07/01/22 05:05 PFSH Medical History (Updated 06/21/22 @ 08:21 by Kaitlyn Land RN) Breast cancer, right (1990) Easy bruisability Hypothyroidism Surgical History (Updated 07/01/22 @ 08:16 by Kinjal Fenton PA-C) History of hysterectomy History of lumpectomy of right breast (1990) History of total replacement of left shoulder joint History of total replacement of right hip Hx of appendectomy Hx of bilateral cataract extraction (2020) Hx of dilation and curettage Hx of foot surgery Hx of tonsillectomy Social History household members: none Smoking Status: Former smoker alcohol intake: never Discharge Assessment & Plan Assessment and Plan Assessment: Left hip osteoarthritis, s/p left total hip arthroplasty Plan of Treatment: D/c to SNF, multimodal pain control, ASA 81 mg BID for VTE prophylaxis, f/u as scheduled in 2 weeks. Discharge Plan Discharge Plan Patient Disposition: SNF Transfer to: [facility] I certify the postop hospital residential care is medically necessary on a continuing basis for any conditions for which he/ she received care during this hospitalization.: Yes The receiving facility has agreed to accept transfer and provide medical treatment.: Yes Discharge orders & Medications Prescriptions: New oxycodone 5 mg Tablet 5 mg PO Q4H PRN (Reason: Pain, Moderate (4-6)) Qty: 60 0RF aspirin 81 mg Tablet,Delayed Release (Dr/Ec) 81 mg PO BID Qty: 90 0RF ondansetron 4 mg Tablet,Disintegrating 4 mg PO Q8H PRN (Reason: Nausea) Qty: 20 0RF docusate sodium 100 mg Capsule 100 mg PO BID PRN (Reason: constipation) Qty: 60 1RF Continued acetaminophen 500 mg Tablet 500 mg PO DAILY PRN (Reason: Pain) levothyroxine 25 mcg Tablet 25 mcg PO DAILY Follow up/Referrals: Jorge Jennings MD [Primary Care Provider] - Jami Figueredo MD [Physician] - As previously scheduled (Follow up w/ Tatianna Mccarthy PA-C, on 07/11/2022 @ 3:00 pm at [facility] [place].) Diet/Activity/Treatments Diet: Diet as Tolerated Activity: Weight bearing as tolerated to left leg. Posterior hip precautions. Cold/Heat Therapy: Ice to hip as needed for pain. Skin/Wound/Dressing Care Report to your healthcare provider any signs of infection, such as:: chills, fever, night sweats, unusual drainage and unusual redness Dressing: May shower. Leave Aquacel dressing in place until follow up in office. No bathing or otherwise soaking incision. Call office if dressing becomes saturated inside. [facility] Rehab type: Physical therapy and Occupational therapy Visit Report/Discharge Packet Instructions: DI for Hip Replacement, DI for Prescription Opioid Use Stand Alone Forms: Patient Portal/API, Stroke Signs & Symptoms, Surgery Discharge Discharge Data Primary Care Provider: Jorge Jennings Attending Provider: Jami Figueredo
--- NOTE | 2022-07-02 10:32 | PC.NURSE ---
Day shift: Report given to Dianna BERNAL at [facility] of [place] at this time. All questions addressed.
--- NOTE | 2022-07-02 12:09 | PC.NURSE ---
Day shift: Pt left unit at approx 1210. SHe is going to [facility]. Transport people are her and she will ride in . Medicated for pain per MAR and pain has been well controlled. Karen WATT. CMS intact and PPP. 1 person assit with FWW.
--- NOTE | 2022-07-02 13:33 | CM.DPC ---
DCP: This CM sent D/C summary, signed medication orders and Passr to [facility] via fax. Pt discharged via their transportation at noon per plan. Ev Brewster RN Case Manager
== END 2022-07-02 12:11 ==
LOC: OR 09:39 → AC 09:39
PROVIDERS: Admitting Provider Anesthesiology; Family Provider Specialist; PCP Internal Medicine; Referring Provider Orthopaedic Surgery; Visit Provider Orthopaedic Surgery
PROC: 0SRB0JZ Replacement of Left Hip Joint with Synthetic Substitute, Open Approach (ICD-10-PCS; CPT 27130; principal; 2022-06-30 14:15)
DX: M16.12 Unilateral primary osteoarthritis, left hip (principal); Z20.822 Contact with and (suspected) exposure to COVID-19
CPT/HCPCS: 27130; 36415; 72170; 73502; 85014; 85018; 87635; 97116; 97162; 97530; C1776; C9803; G0378; C9290; J0171; J0690; J2250; J2405; J3010

== ENCOUNTER → 2023-11-08 11:36 | Outpatient (CLI) | payer MEDICARE, OTHER, SELFPAY ==
[2022-06-30 11:03] VITALS: BMI 28.4
--- NOTE | 2023-11-08 11:39 | DI.CT.S_ITS ---
PROCEDURE: CT UE RT WO CON INDICATIONS: PRIMARY OSTEOARTHRITIS TECHNIQUE: Noncontrast 0.75 mm thick sections acquired from the acromioclavicular joint to the inferior scapula, with coronal and sagittal reformatting. COMPARISON: [facility] Outside Film, CR, XR SHOULDER 2+ VIEWS RIGHT, 06/16/2023, 12:39. FINDINGS: Image quality: Excellent. Bones: No acute osseous fracture or dislocation. Severe degenerative changes are seen at the glenohumeral joint with full-thickness joint space narrowing, subchondral sclerosis, subchondral cystic changes, marginal osteophyte formation, and remodeling of the articular surfaces. There is no significant glenoid retroversion or anteversion relative to the midplane of the scapula at the mid glenoid level. Mild moderate acromioclavicular osteoarthrosis. Degenerative changes are seen in the included spine. Included ribs are intact. Soft tissues: Moderate glenohumeral effusion. Calcified foci in the superior subscapularis recess are suspicious for intra-articular loose bodies or calcific debris. There is mild generalized grade 2 fatty infiltration and loss of bulk within the visualized musculature. No disproportionate atrophy of the rotator cuff musculature. The tendons, ligaments, articular cartilages, and labrum are not well evaluated with CT. Peripheral scarring and traction bronchiectasis are seen in the anterolateral right middle and upper lobe. No acute consolidation. IMPRESSION: 1. Severe glenohumeral osteoarthrosis with remodeling of the articular surfaces but no significant glenoid version. 2. Moderate glenohumeral effusion with suspected intra-articular loose bodies. 3. Mild to moderate acromioclavicular joint osteoarthrosis. Approved by: Perry Betancourt M.D. on 11/08/2023 at 16:18
== END ==
PROVIDERS: Family Provider Specialist; PCP Internal Medicine; Referring Provider Orthopaedic Surgery; Visit Provider Orthopaedic Surgery
DX: M19.011 Primary osteoarthritis, right shoulder (principal); M25.411 Effusion, right shoulder
CPT/HCPCS: 73200

== ENCOUNTER 2023-11-17 12:45 | Inpatient (IN) | payer MEDICARE, OTHER, SELFPAY ==
[2022-06-30 11:03] VITALS: BMI 28.4
[2023-11-09 12:47] VITALS: BMI 28.7
[2023-11-17] VITALS (10 sets, daily range): BP systolic 121–143; BP diastolic 62–97; PULSE 65–91; RESP 12–19; TEMP 35.8–36.8; O2SAT 89–97; BMI 28.7
--- NOTE | 2023-11-17 | DI.RAD.S_ITS ---
PROCEDURE: XR SHOULDER RT 1V INDICATIONS: POST OP TOTAL SHOULDER RIGHT TECHNIQUE: 2 views of the shoulder were acquired. COMPARISON: [facility], CT, CT UE RT WO CON, 11/08/2023, 12:47. SNO Outside Film, CR, XR SHOULDER 2+ VIEWS RIGHT, 06/16/2023, 12:39. FINDINGS: Bones: Reverse right shoulder arthroplasty. Hardware projects in the expected location. No fractures or dislocations. No suspicious bony lesions. Soft tissues: No suspicious soft tissue calcifications. Postoperative gas. IMPRESSION: Expected appearance of the right shoulder arthroplasty. Dictated by: hPillip So M.D. on 11/17/2023 at 17:05 Approved by: Phillip So M.D. on 11/17/2023 at 17:07
[2023-11-17] MEDS: LACTATED RINGERS 1,000 ML 42 ML IV (12:56)
[2023-11-17] MEDS: ACETAMINOPHEN 325 MG TABLET 975 MG PO (13:06)
--- NOTE | 2023-11-17 13:17 | PM.PREOP ---
Pre-operative Note Interval Note History & Physical reviewed/Exam performed by Physician: Yes Changes to H&P: No
[2023-11-17] MEDS: CEFAZOLIN 2 GM/100 ML PREMIX 100 ML IV ×2 (13:42→21:06)
--- NOTE | 2023-11-17 13:46 | SUR.PREOP ---
Block start time [timeout performed at 1326. block starts at 1329] . Monitoring initiated and maintained throughout procedure. Oxygen and medications given per anesthesiologist. Patient remained stable throughout procedure, no adverse reactions noted. Block end time [1331 ].
--- NOTE | 2023-11-17 13:48 | SUR.PREOP ---
gold-tone ring placed in cup with belongings
[2023-11-17] MEDS: TRANEXAMIC ACID 1,000 MG in SODIUM CHLORIDE 0.9% 100 ML 200 MG IV (14:08)
--- NOTE | 2023-11-17 14:19 | SUR.OPER ---
Beach chair with Alexx/Jeff shoulder positioner. Lower body on padded OR bed. Head in foam padded head cradle, secured with straps. Non-operative arm secured <90 degrees abduction. Pillow under knees. Safety belt at thigh. Cloth tape over blanket over lower legs.
[2023-11-17] MEDS: BUPIVACAINE 0.25% (PF) 30 ML, EPINEPHrine 0.15 MG INJ (14:33)
--- NOTE | 2023-11-17 15:03 | P.OP_ITS ---
Operative Date/Time/Diagnoses Date of procedure: 11/17/23 Time of procedure: 15:03 Pre-op diagnosis: Right glenohumeral arthritis Post-op diagnosis: same Procedure & Clinicians Procedure: Right reverse total shoulder arthroplasty Same procedure as scheduled: Yes Indications: Indications: This is a 88-year-old female who has glenohumeral arthritis as well as a deficient supraspinatus. Symptoms have been present for years, insidious onset. Patient has failed a reasonable attempt at conservative therapy. After extensive discussion in clinic, they wished to go forward with surgery. Risks and benefits were described including the risk of infection, bleeding, damage to internal structures including nerves. We also discussed the risk of failure of surgery and the need for revision surgery as well as the risk of anesthesia. The patient expressed understanding with these risks and wished to go forward with surgery. Surgeon: Sunny Barrett Endoscopy Support Specialist: Clau Blankenship Operative Notes Findings: Findings: Osteoarthritis of the glenoid and humeral head as well as a defient rotator cuff as noted on preoperative imaging and under direct visualization Closure Type: primary Specimen(s): none sent Prosthetic devices, grafts, tissues, transplants, or devices: Tornier implants Base plate: standard 25 mm, +3 mm offset Glenosphere: Standard 36 mm Stem: Perform 3 Poly: +6 Estimated Blood Loss (mL): 100 Blood products transfused: none Procedure in detail: Patient was seen in the preoperative holding unit. The correct right shoulder was identified and marked with my initials. Again we discussed the risks and benefits of surgery and they wished to go forward with surgery. The patient was brought back to the operating room and placed supine on the operating table. Smooth endotracheal intubation was performed by anesthesia. All prominences were padded and they were placed into the beach chair position. Intravenous antibiotics were given. The right shoulder was then prepped with the standard sterile preparation and draping. A time-out was then performed in my initials were again identified on the correct shoulder. 1 g of IV tranexamic acid was given. A standard deltopectoral incision was made. Skin flaps were made. The cephalic vein was identified and retracted laterally. This was protected throughout the remainder of the case. Sharp dissection was made along the deltoid, subacromial and subcoracoid space to release adhesions. The conjoined tendon was identified and the axillary nerve was palpated and continuous using the tug test. It was protected throughout the remainder of the case. A brown retractor was placed underneath the deltoid muscle and a darach retractor underneath the conjoint tendon. The subscapularis muscle was ntoed to be intact. The anterior circumflex artery and associated veins on the lower border of the subscapularis were identified and tied off using 0-Vicryl. The biceps tendon was identified in the bicipital groove. This was released from its sheath, and taken from its origin on the glenoid and tied into the pectoralis tendon for a solid tenodesis. We then began a subscapularis peel. The subscapularis was tagged with an Ethibond suture. A 360 degree circumferential release of the subscapularis was performed with protection of the axillary nerve. The coracohumeral ligament was released at the base of the coracoid. The shoulder was then dislocated. Osteophytes were removed using combination of rongeur and osteotome. The rotator cuff was noted to be insufficient. An intramedullary guide was used set at version of 20?. Using an oscillating saw a conservative humeral head cut was made. Impaction reamers were reamed up to a size 3 stem with a built-in angle 135?. A neck protector was placed. Attention was then turned to the glenoid. After retracting the humeral head posteriorly a circumferential release was performed of the capsule with protection of the axillary nerve. The labrum was then released starting at the biceps anchor and going around the rim a small amount of triceps was released from the inferior glenoid. A center guide pin was then placed using the guide, followed by Reamer. After adequate cartilage was removed the boss was reamed and the centeral hole was drilled and measured. The base plate was then implanted and screwed into place. The peripheral screws were then sequentially drilled, measured, and placed. A 36 standard glenosphere was then selected and screwed into place onto the base plate. Turning back to the humerus, the humeral head was delivered and trialed with a 6 concentric. The arm was taken through range of motion and this was felt to be stable. The trial was then removed and a dilute Betadine wash was then performed with 1 L of sterile saline. Before placing the final implant, drill holes were made in the bicipital groove for the subscapularis repair, and sutures were passed through the drill holes. The final stem was then impacted into the humerus. The shoulder was then reduced and again brought through range of motion and was felt to be stable. The subscapularis was then repaired using a modified racking hitch with nice loupes. The skin was closed with 2-0 vicryl and 3-0 Monocryl followed by Aquacel dressing. Patient was awoken from anesthesia and brought back to the postoperative recovery unit without issue. They were placed into a sling. Assisting participation: This operation could not have been safely performed (without compromising the technical results or length of the procedure) without the assistance of a skilled assistant terminal manager. The assistant terminal manager was medically necessary for proper positioning, retraction and manipulation of instruments, proper exposure, graft prep, and manipulation of tissue. Complications: none Post-operative Condition: stable Disposition: PACU Plan for aftercare: Postoperative instructions: Sling to remain on for 6 weeks. No external rotation past neutral for 6 weeks. Okay for the sling to come off for shower. Okay to shower over the Aquacel dressing. If any water gets underneath the dressing, remove the dressing. First postoperative visit in 2 weeks.
[2023-11-17] MEDS: LACTATED RINGERS 1,000 ML 100 ML IV ×2 (17:36→23:45)
[2023-11-17] MEDS: IBUPROFEN 400 MG TABLET PO ×2 (18:55→23:43)
--- NOTE | 2023-11-17 18:56 | PC.NURSE ---
Patient arrived from PACU to Room 216 at 1625. She is A&OX4, VSS, afebrile on RA. Aquacel to R shoulder C/D/I purple bruising beggining to form around surgical site.She denies pain. She is able to wiggle R hand fingers but reports hand and R arm are numb. She is educated about R shoulder activity restrictions and R arm is in shoulder sling. She tolerates dinner well, and is oriented to room. SCD's in place, bed alarm on, call light in reach, IVF LR at 100ml/hr.She states she has not voided since about 8 or 9 a.m. bladder scan this evening is 40 cc at 1850. Continuous monitoring.
[2023-11-17] MEDS: DOCUSATE 100 MG CAPSULE PO (21:06)
[2023-11-17] MEDS: ASPIRIN EC 81 MG TABLET PO (21:06)
[2023-11-17] MEDS: SENNOSIDES 8.6 MG TABLET 17.2 MG PO (21:06)
[2023-11-18 04:08] VITALS: BP 156/87; PULSE 76; RESP 16; TEMP 36.3; O2SAT 93
[2023-11-18] MEDS: IBUPROFEN 400 MG TABLET PO ×3 (05:36→18:56)
[2023-11-18] MEDS: CEFAZOLIN 2 GM/100 ML PREMIX 100 ML IV (05:36)
[2023-11-18] MEDS: LEVOTHYROXINE 25 MCG TABLET PO (05:36)
[2023-11-18 05:55] LABS: Add Manual Diff / Slide Review NO; Basophils Absolute Auto 100 /uL (0-100); Basophils Percent Auto 0.6 % (0-2); Eosinophils Absolute Auto 100 /uL (0-450); Eosinophils Percent Auto 0.7 % (2-4); Hematocrit 39.2 % (36-46); Lymphocytes Absolute Auto 1200 /uL (1100-4500); Lymphocytes Percent Auto 11.7 % (25-40); Mean Corpuscular HGB Conc 33.1 % (30-36); Mean Corpuscular Hemoglobin 31.5 PG (26-34); Mean Corpuscular Volume 95.2 fL (80-100); Monocytes Absolute Auto 1000 /uL (0-900); Neutrophils Absolute Auto 8000 /uL (1500-7000); Platelet Count 290 X10^3/uL (150-400); Red Blood Cell Count 4.12 X10^6/uL (4.0-5.2); Red Cell Distribution Width 15.3 % (11.6-14.8); White Blood Cell Count 10.4 X10^3/uL (4.5-11.0)
[2023-11-18 06:04] LABS: BUN Creatinine Ratio 23.6 (6-22); Blood Urea Nitrogen 21 mg/dL (7-17); Calcium 8.3 mg/dL (8.4-10.2); Carbon Dioxide 28 mmol/L (22-32); Chloride 107 mmol/L (98-107); Estimated Glomerular Filt Rate > 60 mL/min (>60); Glucose 104 mg/dL (80-110); HEMOLYSIS < 15 (0-50); Potassium 3.9 mmol/L (3.4-5.1); Sodium 138 mmol/L (137-145)
[2023-11-18] MEDS: OXYCODONE IR 5 MG TABLET PO ×2 (07:00→10:28)
[2023-11-18 08:00] VITALS: BP 151/71; PULSE 78; RESP 16; TEMP 36.2; O2SAT 93
[2023-11-18] MEDS: polyethylene glycoL 3350 17 GM POWD.PACK PO (09:40)
[2023-11-18] MEDS: ASPIRIN EC 81 MG TABLET PO ×2 (09:41→21:05)
[2023-11-18] MEDS: DOCUSATE 100 MG CAPSULE PO ×2 (09:41→21:06)
--- NOTE | 2023-11-18 10:15 | PT.IIE ---
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) History of total replacement of left shoulder joint History of total replacement of right hip Hx of appendectomy Hx of bilateral cataract extraction (2020) Hx of dilation and curettage Hx of foot surgery Hx of tonsillectomy Medical History (Last Updated 06/21/22 @ 08:21 by Kaitlyn Land RN) Breast cancer, right (1990) Easy bruisability Hypothyroidism Physical Therapy Inpatient Evaluation/Re-Eval M1 PT/OT-IP Prior Functional Status Start: 11/18/23 13:12 Freq: NEEDED Status: Active Protocol: Document 11/18/23 10:15 AB (Rec: 11/18/23 13:26 AB [id number]) Medical Review Prior Functional Status Medical History Reviewed Yes Communication able to make needs known Mobility and Gait pt stated taht she was modified independent with all mobilities and ambulation without AD but uses her 4WW when she goes to the pool area for safety Social History Household Members none Living Arrangements Apartment/Condo Number of Floors (Floors) One Floor Number of Stairs To Enter/Railing? [address] from car to enter the apartment Home Environment Standard Height Toilet,Tub/ Shower Home Equipment Four Wheel Walker,Straight Cane,Hand Held Shower,Grab Bars In Shower Additional Social History Comment pt has a transfer pole on L side of the bed but plans to sleep on her lift chair M2 PT-IP Current Condition Start: 11/18/23 13:12 Freq: NEEDED Status: Active Protocol: Document 11/18/23 10:15 AB (Rec: 11/18/23 13:26 AB [id number]) Physical Therapy Current Condition Current Condition Evaluation Date 11/18/23 Treatment Diagnosis s/p R TSA reverse; difficulty in walking Onset Date 11/17/23 M3 PT-IP Subjective Start: 11/18/23 13:12 Freq: NEEDED Status: Active Protocol: Document 11/18/23 10:15 AB (Rec: 11/18/23 13:26 AB [id number]) Subjective Physical Therapy Visit Type Type Initial Evaluation Visit Start Time 10:15 Visit Stop Time 10:[address]ING [address] SUPERVISOR Visits 0 Physical Therapy Visit Comments Patient Comments agreeable to do PT Therapy Pain Assessment Pain When Pain Assessed At Rest Pain Present Pain Present Pain Reported Location Right Shoulder Intensity 7 Scale Used Numeric (0 - 10) Pain Management Techniques Distraction,Modification of Treatment,Re-positioning, Timing of Activity with Medications M4 PT-IP Mobility and Gait Start: 11/18/23 13:12 Freq: NEEDED Status: Active Protocol: Document 11/18/23 10:15 AB (Rec: 11/18/23 13:26 AB [id number]) PT-Bed Mobility Assessment Supine to Sit Supine to Sit Standby Assistance,Head of Bed Elevated,Bedrails Sit to Supine Sit to Supine Standby Assistance,Bedrails PT-Transfer Assessment Sit to and From Stand Sit to and from Stand Standby Assistance,Use of Upper Extremities Equipment Transfer Assistive Device None,Gait Belt Orthotic/Prosthetic Devices or Brace: Yes Transfers Transfer Destination Bed,Chair Transfer Technique Stand Step Pivot Transfer Ability Level of Assist Standby Assistance Comments Mobility Comments pt sitting on the chair with NAC. PT took over pt's care. obtained pt's PLOF and home set up. pt tends to move R shoulder when moving. educated pt on R shoulder precautions. post-op handout provided. educated pt regarding HEP. sling adjusted on pt. pt completed elbow/hand/wrist HEP. pt completed sit to stand SBA and step transfer to bed without AD sBA. completed sit< >supine SBA using bed rail. HOB elevated ~ 15 deg. pt stated that she will use her lift chair to sleep on. pt can be impulsive and will move R shoulder when moving. pt needing constant cues for shoulder precautions and safety. pt completed ambulation in in room without AD SBA. pt with unsteady gait but without LOB. pt sat on the chair and rested. pt agreed to do steps. step stool positioned and pt completed up/down step requiring min A and cues. pt stated that she usually holds on the her car at home to be able to step up/ down the curb. pt agreed to sit on the chair. positioned pt on the chair. call light and table placed within reach. Gait Assessment Gait Gait Assistance Required: Standby Assistance Distance (Feet) 40 Able to Maintain Weight Bearing Status Yes During Gait Assistive Devices Assistive Device None,Gait Belt Orthotic/Prosthetic Devices or Brace: Yes Gait Deviations General Gait Pattern Ataxic Factors Limiting Gait Function Factors Limiting Gait Function Difficulty Following Directions,Limited Range of Motion,Pain,Poor Balance,Poor Safety Awareness Stair Climbing Assessment Evaluation Level of Assist On Stairs Minimal Assistance Devices Stair Climbing Assistive Devices None Technique/Endurance Stair Climbing Direction Ascend and Descend Stair Climbing Technique Step to Step Number of Steps Climbed 1 Query Text: Stair Climbing Set # Repetitions (reps) 2 PT-Balance Assessment Sitting Balance and Reactions Static Sitting Balance Ability Normal Dynamic Sitting Balance Ability Good Standing Balance and Reactions Static Standing Balance Ability Good Dynamic Standing Balance Ability Fair Device Used without AD M5 PT-IP Objective Assessments Start: 11/18/23 13:12 Freq: NEEDED Status: Active Protocol: Document 11/18/23 10:15 AB (Rec: 11/18/23 13:26 AB [id number]) Orientation Orientation/Cognition Level of Alertness Alert Orientation Name Language Function Ability No Deficits Noted Safety Awareness Decreased Safety Awareness Memory Description Short Term Impaired Gross Range of Motion Lower Extremity ROM Assessment Within Functional Limits Strength Lower Extremity Strength Assessment Within Functional Limits Muscle Tone Muscle Tone WNL Yes M6 PT-IP Treatment Start: 11/18/23 13:12 Freq: NEEDED Status: Active Protocol: Document 11/18/23 10:15 AB (Rec: 11/18/23 13:26 AB [id number]) Physical Therapy Treatment Exercises Exercises Elbow Flexion/Extension,Wrist ROM,Hand ROM Education Education Provided Precautions,Weight Bearing Status,Post-Op Packet,Safety Brace Education [place],Patient Other Treatments Other Treatment Performed educated pt on sling management M7 PT-IP Assessment and Plan Start: 11/18/23 13:12 Freq: NEEDED Status: Active Protocol: Document 11/18/23 10:15 AB (Rec: 11/18/23 13:26 AB [id number]) PT Summary Assessment and Plan Potential Rehabilitation Potential Fair Status of Condition at Evaluation Evolving Summary Impairments Pain,ROM,Strength,Balance, Coordination,Sensation,Tone, Cognition,Bed Mobility, Transfers,Gait,Activity Tolerance Assessment Summary pt is an 88 y/o F s/p R TSA reverse POD 1. pt has R shoulder precautions and is NWB on RUE. pt requiring SBA with mobility and min A for stair climbing but requiries frequent cues for precautions and safety. pt can be impulsive. pt lives [place] and will need assistance at this time especially with ADLs. pt will benefit from SNF rehab. will continue to assess. Goals Bed Mobility Goal Independent Transfer Goal Independent Gait Distance 200 Other Goals up/down 1 step mod I Days to Meet Goals 5 Frequency of Treatment Frequency Of Treatment Once a Day Treatment Plan Physical Therapy Treatment Plan Bed Mobility Training,Transfer Training,Gait Training, Therapeutic Exercise,Balance Retraining,Post Op Education, Discharge Planning,Hot or Cold Pack,Neuromuscular Re-ed, Coordination Retraining,Manual Therapy Precautions Shoulder Precautions Sling,PROM,Internal Rotation to Body,No External Rotation, No Abduction,Forward Flexion to 90 degrees,Pendulums Weight Bearing Status Weight Bearing Status Non-Weight Bearing Allowed Weight Bearing Amount (enter % RUE NWB or #) (%) Recommendations To Nursing Amount of Assist Needed 1 Person Assist Discharge Recommendations PT Discharge Recommendations SNF Rehab Transportation Needs at Discharge Private Vehicle,Wheelchair/ Cabulance
--- NOTE | 2023-11-18 10:42 | P.PN_ITS ---
Subjective Subjective Date Patient Seen: 11/18/23 Time Patient Seen: 09:30 Interval history: Patient is found sitting comfortably in her chair. Her sling is partially on. She had some difficulty sleeping last night mostly due to positioning and temperature. Denies any new numbness or tingling into the right upper extremity. Exam Vital Signs (past 8 hours): - 11/18/23 04:08 11/18/23 08:00 Temperature 97.4 F L 97.1 F L Pulse Rate 76 78 Respiratory Rate 16 16 Blood Pressure 156/87 H 151/71 H Pulse Oximetry 93 93 Oxygen Delivery Method Room Air Narrative Exam Narrative: Dressing is intact and dry. Patient is able to manipulate her wrists and all anatomical directions. Marketing Communications Manager strength 5/5. Sensation of the right upper extremity grossly intact to light touch. Const General: cooperative and comfortable Resp Effort & Inspection: normal respiratory effort and able to speak in complete sentences Objective Labs 11/18/23 04:50 11/18/23 04:50 Labs: Laboratory Results - last 24 hr 11/18/23 04:50 WBC 10.4 RBC 4.12 Hgb 13.0 Hct 39.2 MCV 95.2 MCH 31.5 MCHC 33.1 RDW 15.3 H Plt Count 290 Neut % (Auto) 77.0 H Lymph % (Auto) 11.7 L [place] % (Auto) 10.0 Eos % (Auto) 0.7 L Baso % (Auto) 0.6 Neut # (Auto) 8000 H Lymph # (Auto) 1200 [place] # (Auto) 1000 H Eos # (Auto) 100 Baso # (Auto) 100 Sodium 138 Potassium 3.9 Chloride 107 Carbon Dioxide 28 BUN 21 H Creatinine 0.89 Estimated GFR > 60 BUN/Creatinine Ratio 23.6 H Glucose 104 Calcium 8.3 L [facility] Medical History (Updated 06/21/22 @ 08:21 by Kaitlyn Land RN) Easy bruisability Breast cancer, right (1990) Hypothyroidism Surgical History (Updated 11/09/23 @ 12:55 by Kaitlyn Land RN) 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) History of lumpectomy of right breast (1990) Hx of foot surgery History of total replacement of left shoulder joint History of total replacement of right hip Hx of dilation and curettage Hx of tonsillectomy History of hysterectomy Hx of appendectomy Hx of bilateral cataract extraction (2020) Social History household members: none Smoking Status: Former smoker alcohol intake: never Assessment & Plan Post-op Postoperative Procedures: Procedures Operation Date: 11/17/23 14:15 Actual Procedure Side Surgeon p Total Shoulder Arthroplasty - Reverse with biceps tenodesis Right Sunny Barrett MD Postoperative day: 1 Postoperative status: doing well Postoperative plan: routine post-op care Postoperative plan narrative: Patient lives alone on [address], but has a neighbor that looks on on her from time to time. She is planning to stay at a SNF until she is able to discharge home safely. Discussed with CM and they are in agreeance with this plan and attempting to find a bed for her. She will need to stay 3 nights in the hospital before transferring. Continue with immobilization of the right shoulder in the sling. Multimodal pain control. Time Spent With Patient Time with patient: 15-24 minutes Quality VTE Deep Vein Thrombosis/Pulmonary Embolism Present on Admission: No
--- NOTE | 2023-11-18 10:56 | CM.DANOTE ---
Initial DCP Assessment Note Pt is a 88 yo female, resident of [place], now POD#1 [address] shoulder surgery by DR Barrett PCP: Jorge Jennings Payer: [employer] Reviewed chart, met w/patient to introduce self and role. Patient reports she lives alone in an apt in [place], [facility]. Patient has no children, has a 94 yo sister that can ambulate but is not A+O. Patient requests this HOUSING DEVELOPMENT SPECIALIST send referral to [facility] for review. Placed call to Nolvia who is fire prevention inspector this weekend at [facility]; had to LM. Will plan to email or fax referral, whichever can be reviewed more easily today. PASRR completed. Plan: Discharge to [facility] anticipated, via wheelchair van. Earliest would be Sunday 11/19 CM team following closely for coordination. TRISTON Coello Discharge Planning/Care Management CM Discharge Assessment Start: 11/18/23 10:52 Freq: Status: Active Protocol: Document 11/18/23 10:52 LACIE (Rec: 11/18/23 10:56 LACIE [id number]) Discharge Planning Assessment Assigned Business Analysis Consultant TRISTON Gauthier DPOA/Assigned Designee Name Sherita Alanis (Kim) Advance Directives? Yes Advance Directives on File No History Provided By Patient,Medical Record Prior Living Arrangements Apartment/Condo Household Members none Type of transporation used prior to Relies on Others admit Independent with ADL's Yes Is patient alert and oriented? Yes: Mild memory loss noted Needs Assistance With Home Chores / Shopping Patient/Family Preference Senior Living Facility Barriers to Discharge Yes Comment Lives alone and has not planned for anyone to stay with her to assist. Patient requests to discharge to [facility] Discharge Plan Senior Living Facility Transportation Arrangement Wheelchair Referrals Initiated Senior Living Additional Comment [facility]
[2023-11-18 12:07] VITALS: BP 140/73; PULSE 77; RESP 18; TEMP 36.1; O2SAT 94
[2023-11-18 16:00] VITALS: BP 135/51; PULSE 88; RESP 19; TEMP 35.9; O2SAT 93
[2023-11-18 20:00] VITALS: BP 146/60; PULSE 94; RESP 17; TEMP 36.2; O2SAT 95
[2023-11-18] MEDS: SENNOSIDES 8.6 MG TABLET 17.2 MG PO (21:05)
[2023-11-18] MEDS: ACETAMINOPHEN 325 MG TABLET 650 MG PO (21:05)
[2023-11-19] MEDS: ACETAMINOPHEN 325 MG TABLET 650 MG PO ×2 (04:38→12:03)
[2023-11-19] MEDS: IBUPROFEN 400 MG TABLET PO ×5 (06:21→23:34)
[2023-11-19] MEDS: LEVOTHYROXINE 25 MCG TABLET PO (06:21)
[2023-11-19 08:00] VITALS: BP 137/69; PULSE 77; RESP 16; TEMP 35.9; O2SAT 91
[2023-11-19] MEDS: polyethylene glycoL 3350 17 GM POWD.PACK PO (08:56)
[2023-11-19] MEDS: DOCUSATE 100 MG CAPSULE PO ×2 (08:56→20:11)
[2023-11-19] MEDS: ASPIRIN EC 81 MG TABLET PO ×2 (08:56→20:11)
[2023-11-19] MEDS: SODIUM CHLORIDE 0.9% FLUSH 10 ML IV ×2 (08:57→20:11)
--- NOTE | 2023-11-19 11:50 | P.PN_ITS ---
Subjective Subjective Date Patient Seen: 11/19/23 Time Patient Seen: 11:50 Interval history: This is a pleasant 88-year-old female I did a right reverse total shoulder arthroplasty on 2 days ago. She is doing quite well and has no pain. Getting ready for discharge to a senior living facility. Denies any distal numbness or tingling. Denies any recent nausea, vomiting, diarrhea, fevers, chills, shortness of breath or chest pain no other complaints at this time. Exam Vital Signs (past 8 hours): - 11/19/23 08:00 Temperature 96.6 F L Pulse Rate 77 Respiratory Rate 16 Blood Pressure 137/69 Pulse Oximetry 91 Oxygen Delivery Method Room Air Oxygen Flow Rate 0 Narrative Exam Narrative: HEENT: Head atraumatic eyes anicteric moist mucous membranes Cardiovascular: Palpable peripheral pulses extremities are warm and well perfused Respiratory: Breathing comfortably on room air Psychiatric: Appropriate mood and affect Neuro: No acute deficits Musculoskeletal: Exam of the right upper extremity demonstrates no breakthrough bleeding from her Aquacel dressing. Sensation intact to light touch in median, radial, ulnar, axillary nerve distributions. 2+ radial pulse with brisk capillary refill less than 2 seconds. 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) History of lumpectomy of right breast (1990) Hx of foot surgery History of total replacement of left shoulder joint History of total replacement of right hip Hx of dilation and curettage Hx of tonsillectomy History of hysterectomy Hx of appendectomy Hx of bilateral cataract extraction (2020) Social History household members: none Smoking Status: Former smoker alcohol intake: never Assessment & Plan Assessment & Plan narrative: Assessment: 88-year-old female 3 days status post right reverse total shoulder arthroplasty Plan: Passive range of motion only with physical therapy, no active range of motion. Focus on hand wrist and elbow range of motion. Discharge to senior living facility when feasible Time-Based Coding :: [TOTAL MINUTES] spent with patient and on the chart (including review of chart, obtaining history, exam, reviewing outside data, placing orders, documenting exam and treatment plan, and counseling patient) on [DATE]. Quality VTE Deep Vein Thrombosis/Pulmonary Embolism Present on Admission: No
--- NOTE | 2023-11-19 12:21 | PT.IPTN ---
Current Diagnoses Other specific arthropathies, not elsewhere classified, right shoulder (11/17/23) Surgery Performed Operation Date: 11/17/23 14:15 Actual Procedures p Total Shoulder Arthroplasty - Reverse with biceps tenodesis(Right) - Sunny Barrett MD Physical Therapy Treatment Note M2 PT-IP Current Condition Start: 11/18/23 13:12 Freq: NEEDED Status: Active Protocol: Document 11/18/23 10:15 AB (Rec: 11/18/23 13:26 AB [id number]) Physical Therapy Current Condition Current Condition Evaluation Date 11/18/23 Treatment Diagnosis s/p R TSA reverse; difficulty in walking Onset Date 11/17/23 M3 PT-IP Subjective Start: 11/18/23 13:12 Freq: NEEDED Status: Active Protocol: Document 11/19/23 12:05 MB (Rec: 11/19/23 12:21 MB [id number]) Subjective Physical Therapy Visit Type Type Treatment Note Visit Start Time 12:05 Visit Stop Time 12:15 Number of AUGER SUPERVISOR Visits 0 Physical Therapy Visit Comments Patient Comments Pt is pleasant and agreeable to do PT. Therapy Pain Assessment Pain When Pain Assessed At Rest Pain Present Pain Present Denied Pain M4 PT-IP Mobility and Gait Start: 11/18/23 13:12 Freq: NEEDED Status: Active Protocol: Document 11/19/23 12:05 MB (Rec: 11/19/23 12:21 MB [id number]) PT-Bed Mobility Assessment Rolling Type of Rolling Roll to Left Supine to Sit Supine to Sit Independent,1 Person Assistance Sit to Supine Sit to Supine Independent,1 Person Assistance Scooting Scooting to Edge of Bed Independent Scooting Up and Down in Bed Independent PT-Transfer Assessment Sit to and From Stand Sit to and from Stand Independent Equipment Transfer Assistive Device None Orthotic/Prosthetic Devices or Brace: Yes Transfers Transfer Destination Bed,Chair Transfer Technique Ambulation Comments Mobility Comments Pt is I with mobility today Gait Assessment Gait Gait Assistance Required: Independent Distance (Feet) 150 Assistive Devices Assistive Device None Orthotic/Prosthetic Devices or Brace: Yes Comments Gait Comments Good mobility today PT-Balance Assessment Sitting Balance and Reactions Static Sitting Balance Ability Normal Dynamic Sitting Balance Ability Normal Standing Balance and Reactions Static Standing Balance Ability Good Dynamic Standing Balance Ability Good Device Used None M5 PT-IP Objective Assessments Start: 11/18/23 13:12 Freq: NEEDED Status: Active Protocol: Document 11/18/23 10:15 AB (Rec: 11/18/23 13:26 AB [id number]) Orientation Orientation/Cognition Level of Alertness Alert Orientation Name Language Function Ability No Deficits Noted Safety Awareness Decreased Safety Awareness Memory Description Short Term Impaired Gross Range of Motion Lower Extremity ROM Assessment Within Functional Limits Strength Lower Extremity Strength Assessment Within Functional Limits Muscle Tone Muscle Tone WNL Yes M6 PT-IP Treatment Start: 11/18/23 13:12 Freq: NEEDED Status: Active Protocol: Document 11/19/23 12:05 MB (Rec: 11/19/23 12:21 MB [id number]) Physical Therapy Treatment Education Education Provided Precautions,Safety M7 PT-IP Assessment and Plan Start: 11/18/23 13:12 Freq: NEEDED Status: Active Protocol: Document 11/19/23 12:05 MB (Rec: 11/19/23 12:21 MB [id number]) PT Summary Assessment and Plan Summary Assessment Summary Pt is I with transfers, bed mobility and gait today. She states she has no steps at home. No further acute PT needs. Will d/c PT. Frequency of Treatment Frequency Of Treatment Discharge Precautions Shoulder Precautions Sling,No External Rotation Brace Sling for 6 weeks, sling off for showers Weight Bearing Status Allowed Weight Bearing Amount (enter % RUE NWB or #) (%) Her sling is too big Recommendations To Nursing Amount of Assist Needed Standby Assistance Discharge Recommendations PT Discharge Recommendations Home vs SNF Transportation Needs at Discharge Private Vehicle
--- NOTE | 2023-11-19 12:49 | CM.DPNOTE ---
DCP Note ELEPHANT KEEPER reviewed EMR. Per Nolvia at , able to accept pt Monday at tentative transport time 1100. Asked for supplemental ins card information. ELEPHANT KEEPER met with pt in room. Reviewed plan. Pt in agreement. Gave ins card, ELEPHANT KEEPER made copy and returned it. ELEPHANT KEEPER answered questions to best of ability. ELEPHANT KEEPER emailed Nolvia copy of INS card and placed physical copies in scanning folder. P: Dc monday at 1100 to [facility]. PAS[facility] completed. CM team will continue to follow closely. TRISTON Michele
[2023-11-19 19:00] VITALS: BP 115/48; PULSE 80; RESP 20; TEMP 36.3; O2SAT 96
[2023-11-19] MEDS: SENNOSIDES 8.6 MG TABLET 17.2 MG PO (20:11)
--- NOTE | 2023-11-20 06:35 | PM.DS.1 ---
History of Present Illness History of Present Illness Date Patient Seen: 11/20/23 Time Patient Seen: 06:35 Chief complaint: INPT Narrative: Operative Date/Time/Diagnoses Date of procedure: 11/17/23 Time of procedure: 15:03 Pre-op diagnosis: Right glenohumeral arthritis Post-op diagnosis: same Procedure & Clinicians Procedure: Right reverse total shoulder arthroplasty Same procedure as scheduled: Yes Indications: Indications: This is a 88-year-old female who has glenohumeral arthritis as well as a deficient supraspinatus. Symptoms have been present for years, insidious onset. Patient has failed a reasonable attempt at conservative therapy. After extensive discussion in clinic, they wished to go forward with surgery. Risks and benefits were described including the risk of infection, bleeding, damage to internal structures including nerves. We also discussed the risk of failure of surgery and the need for revision surgery as well as the risk of anesthesia. The patient expressed understanding with these risks and wished to go forward with surgery. Surgeon: Sunny Barrett Amusement Centre Manager: Clau Blankenship Operative Notes Findings: Findings: Osteoarthritis of the glenoid and humeral head as well as a defient rotator cuff as noted on preoperative imaging and under direct visualization Closure Type: primary Specimen(s): none sent Prosthetic devices, grafts, tissues, transplants, or devices: Tornier implants Base plate: standard 25 mm, +3 mm offset Glenosphere: Standard 36 mm Stem: Perform 3 Poly: +6 Estimated Blood Loss (mL): 100 Blood products transfused: none Discharge Providers Provider Date of admission: 11/17/23 12:45 Discharge Date: 11/20/23 Primary care physician: Jorge Jennings MD Consults: 11/17/23 15:12 Consult to Discharge Planning Routine Comment: Will likely need SNF placement Consult to Occupational Therapy Evaluate & Treat Comment: Physician Instructions: Evaluate and treat Consult to Physical Therapy Evaluate & Treat Comment: Physician Instructions: Evaluate and Treat Discharge provider: Kinjal Fenton PA-C Summary Hospital Course Discharge Diagnosis: Right glenohumeral arthritis, s/p right reverse total shoulder arthroplasty Hospital Course: Ms Tapia's hospital course was unremarkable. She made fair progress w/ OT, but d/t the fact that she lives alone in [place] without assistance, she does require further rehab prior to d/c home. She was eating and voiding without difficulty and her pain was well-controlled with oral medication. Exam Vital Signs (past 8 hours): Oxygen Delivery Method Room Air Oxygen Flow Rate 0 Narrative Exam Narrative: 5/5 clock and watch hands painter strength, pt able to move all digits on RUE. Sensation to light touch intact throughout RUE, Aquacel dressing CDI. 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 Multimodal pain control, sling at all times, ASA 81 mg BID for VTE prophylaxis. Discharge Plan Discharge Plan Patient Disposition: SNF Transfer to: [facility] Discharge orders & Medications Prescriptions: New acetaminophen 325 mg Tablet 650 mg PO Q6H PRN (Reason: Fever/Mild Pain (1-3)) Qty: 240 0RF aspirin 81 mg Tablet,Delayed Release (Dr/Ec) 81 mg PO BID Qty: 60 0RF ibuprofen 400 mg Tablet 400 mg PO Q4H Qty: 90 0RF ondansetron 4 mg Tablet,Disintegrating 4 mg PO Q4HR PRN (Reason: Nausea And Vomiting) Qty: 20 0RF polyethylene glycol 3350 17 gram Powder In Packet 17 g PO DAILY PRN (Reason: constipation) Qty: 100 0RF oxycodone 5 mg Tablet 5 mg PO Q4-6H PRN (Reason: Pain, Moderate (4-6)) Qty: 30 0RF oxycodone 5 mg tablet 5 mg PO Q4-6H PRN (Reason: pain (scale score 4-6)) Qty: 30 0RF Continued levothyroxine 25 mcg Tablet 25 mcg PO DAILY Follow up/Referrals: Sunny Barrett MD [Physician] - (Follow up at [facility] as scheduled in 2 weeks. ) Jorge Jennings MD [Primary Care Provider] - Diet/Activity/Treatments Diet: Diet as Tolerated Activity: Sling to remain on with no external rotation past neutral for 6 weeks. Cold/Heat Therapy: Ice to the shoulder for additional pain control. Skin/Wound/Dressing Care Report to your healthcare provider any signs of infection, such as:: chills, fever, night sweats, unusual drainage and unusual redness Dressing: Keep dressing intact, clean and dry until 2 week post-op appointment. No soaking the incision site in pools or tubs. No topical ointments or creams to the incision site. Special Rehabilitation Services Reason for rehabilitation: Post-operative therapy Rehab type: Physical therapy Visit Report/Discharge Packet Instructions: DI for Prescription Opioid Use, DI for Shoulder Replacement Stand Alone Forms: Patient Portal/API, Surgery Discharge Discharge Data Primary Care Provider: Jorge Jennings Quality VTE Deep Vein Thrombosis/Pulmonary Embolism Present on Admission: No
[2023-11-20] MEDS: LEVOTHYROXINE 25 MCG TABLET PO (06:38)
[2023-11-20] MEDS: IBUPROFEN 400 MG TABLET PO (06:38)
[2023-11-20 07:43] VITALS: BP 147/62; PULSE 99; RESP 20; TEMP 36.4; O2SAT 93
[2023-11-20] MEDS: DOCUSATE 100 MG CAPSULE PO (08:17)
[2023-11-20] MEDS: polyethylene glycoL 3350 17 GM POWD.PACK PO (08:17)
[2023-11-20] MEDS: ASPIRIN EC 81 MG TABLET PO (08:17)
--- NOTE | 2023-11-20 08:35 | PC.NURSE ---
Addendum entered by Madison Jack R.N. 11/20/23 11:17: Report called to [facility], patient left at 1110. Original Note: Patients aquacel dressing to .shoulder is cdi, sling in place. Patient is eating breakfast now and will then be going to [facility] at 1100am.
--- NOTE | 2023-11-20 08:37 | CM.DPC ---
DCP Discharge SNF Per Ortho PA, pt medically stable to d/c to SNF today and no identified barriers to discharge. JOEL called [facility] admissions and confirmed they can still accept and they will confirm transport time of 1100. JOEL faxed PASRR, signed med list, script, d/c summary, MD orders to [facility] to review. JOEL updated STOPBOARD ASSEMBLER, Bottom Buffer RN, RN and provided RN report number and pt aware and agreeable with discharge to [facility] today. Plan: Patient to d/c to [facility] via facility van today at 1100 before safe return to [place]. TRISTON Kim
== END 2023-11-20 11:10 | DRG 483 ==
PROVIDERS: Admitting Provider Orthopaedic Surgery; Family Provider Specialist; PCP Internal Medicine; Referring Provider Orthopaedic Surgery; Visit Provider Orthopaedic Surgery
PROC: 0RRJ00Z Replacement of Right Shoulder Joint with Reverse Ball and Socket Synthetic Substitute, Open Approach (ICD-10-PCS; CPT 23472; principal; 2023-11-17 14:15)
DX: M19.011 Primary osteoarthritis, right shoulder (principal); E03.9 Hypothyroidism, unspecified; Z87.891 Personal history of nicotine dependence
CPT/HCPCS: 36415; 64450; 73020; 80048; 85025; 97116; 97161; 97530; C1776; J0171; J0690; J1100; J2405; J2704; J3010